=== PATIENT | male | born 1960 | race Caucasian/White ===

== ENCOUNTER 2016-10-22 07:56 | Day surgery (SDC) | payer MEDICARE ==
[~2016-10-22 07:56] MED LIST: RINGERS SOLUTION,LACTATED 1,000 ML IV PRN
--- OUTSIDE RECORDS SUMMARY | 2016-10-22 08:00 | XMS REPORT | Continuity of Care Document ---
:1960 Author Organization [facility] ([facility]) Address [address] [place] [address] Phone [phone] Care Team Providers Name Role Phone Amado Marc Primary Care Provider [phone] Source Comments This disclosure is being made pursuant to the Care Everywhere program, applicable federal and state laws, and may not contain all informaitonavailable regarding this patient.[facility] ([facility]) Active Allergies and Adverse Reactions No Known Allergies Current Medications Prescription Sig. Disp. Refills Start Date End Date Status cholecalciferol Take 1 Tab by 30 Tab 0 04/25/2012 Active (VITAMIN D3) 400 unit mouth daily. tablet Indications: OSTEOPOROSIS docusate 100 mg Take 1 Cap by 60 Cap 0 04/25/2012 Active capsule mouth 2 times daily. Indications: CONSTIPATION multivitamin with Take 1 Tab by 30 Tab 0 04/25/2012 Active minerals tablet mouth daily. Indications: MINERAL DEFICIENCY PREVENTION polyethylene glycol Take 17 g by mouth 30 Packet 0 04/25/2012 Active 3350 17 gram packet daily. Indications: CONSTIPATION traZODone 50 mg tablet Take 1 Tab by 30 Tab 0 04/25/2012 Active mouth at bedtime as needed for Sleep. Indications: INSOMNIA citalopram (CELEXA) 20 Take 1 Tab by 30 Tab 1 06/29/2013 Active mg tablet mouth daily. Indications: MAJOR DEPRESSIVE DISORDER tamsulosin 0.4 mg ER Take 0.8 mg by Active capsule mouth at bedtime. OXcarbazepine 600 mg Take 1 Tab by 180 Tab 11 10/16/2014 Active tablet mouth 2 times daily. Indications: COMPLEX-PARTIAL EPILEPSY OXcarbazepine 150 mg Take 1 Tab by 60 Tab 11 10/16/2014 Active tablet mouth 2 times daily. Take along with 600 mg tab BID Indications: COMPLEX-PARTIAL EPILEPSY levETIRAcetam 750 mg Take 2 Tabs by 120 Tab 11 10/16/2014 Active tablet mouth 2 times daily. Indications: TONIC-CLONIC EPILEPSY TREATMENT ADJUNCT Active Problems Problem Noted Date Cognitive dysfunction with epilepsy 04/11/2014 Last Assessment & Plan: 04/11/2014 SInce status epilepticus. Please see neuropsychological assessment. Patient can not drive. 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 says he has days when he is down. He is on anti-depressant that is prescribed by PMD In [place] he goes for walks, watches sports with family. 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 Had a convulsion in the fall while in [place]. He may have missed one dose of keppra. Trileptal was increased at that time. He stopped using pill box but will get back to it He does wear his CPAP The will be moving permanently to [facility] which is near [facility]. Plan Advised re short half life and needs to be taken very reliably and not miss a dose They have a copy of their medical records and I will look for a neurologist / epileptologist in their area. Continue keppra 1500 mg twice a day; Trileptal 750 mg twice a day renewed. Status epilepticus 04/09/2012 Last Assessment & Plan: 08/14/2013 Status epilepticus 04/2012. He is at risk for recurrence. Resolved Problems Problem Noted Date Resolved Date Hypokalemia 04/13/2012 04/14/2012 Urinary retention 04/13/2012 04/16/2012 Immunizations Name Dates Previously Given Next Due Influenza, PF 04/16/2012 Influenza, unspecified 04/03/2014 Social History Tobacco Use Types Packs/Day Years Used Date Never Smoker Smokeless Tobacco: Never Used Tobacco Cessation:Counseling Given: Yes Comments: Alcohol Use Drinks/Week oz/Week Comments No Former alcohol abuse, quit many years ago Last Filed Vital Signs Vital Sign Reading Time Taken Blood Pressure 117/67 10/16/2014 3:28 PM CDT Pulse 66 10/16/2014 3:28 PM CDT Temperature 36.8 C (98.2 F) 04/25/2012 8:00 AM CDT Respiratory Rate 18 04/25/2012 8:00 AM CDT Height 1.727 m (5' 7.99") 10/16/2014 3:28 PM CDT Weight 117.9 kg (259 lb 14.8 oz) 10/16/2014 3:28 PM CDT Body Mass Index 39.53 10/16/2014 3:28 PM CDT Oxygen Saturation 94% 04/25/2012 8:00 AM CDT Plan of Care Health Maintenance Due Date Last Done Comments HCV Screening 1960 Hepatitis B Vaccine (1 of 3 - Primary 1960 Series) Tdap Vaccine 12/15/1971 Lipid Disorder Screening 1978 MMR Vaccine 1978 Td Vaccine 1978 Colonoscopy 2010 Prostate Cancer Screening 2010 Influenza Vaccine: Seasonal (#1) 02/02/2016 04/03/2014, 04/16/2012 Results from Last 3 Months Not on file
[2016-10-22] MEDS ORDERED: RINGERS SOLUTION,LACTATED 1,000 ML IV ONE (08:35)
--- NOTE | 2016-10-22 09:54 | OR ---
Operative Report - Dictated Report Narrative: Date: 10/22/2016 Staff surgeon: Woody Goldsmith MD Proctoring surgeon: Ritu Garrett MD Procedure: Colonoscopy Preoperative diagnosis: Screening postoperative diagnosis: One diverticulum at the hepatic flexure Description of procedure: After informed consent was obtained and appropriate premedication had been given the patient was placed in the left lateral decubitus position and a flexible fiberoptic video colonoscope was introduced and advanced without difficulty under direct vision to the cecum. The usual landmarks were identified. Preparation was excellent and excellent views were obtained. The findings were of a normal cecum. The ascending colon was normal. One small diverticulum was seen at the hepatic flexure. The transverse colon was normal. Splenic flexure and descending descending colon appeared normal. The sigmoid colon was normal. The rectum was normal. The mucosal collar, vasculature, and texture were normal throughout. No suspicious mass lesions were seen. The patient tolerated the procedure well without any apparent complications and was discharged from the endoscopy suite in stable condition.
[2016-10-22 10:45] VITALS: BP 148/80
== END 2016-10-22 07:57 | disposition home or self-care (01) ==
LOC: AMB 07:56
PROVIDERS: ATTEND Specialist
PROC: 0DJD8ZZ Inspection of Lower Intestinal Tract, Via Natural or Artificial Opening Endoscopic (ICD-10-PCS; principal; 2016-10-22 08:45)
DX: Z12.11 Encounter for screening for malignant neoplasm of colon (principal); K57.30 Diverticulosis of large intestine without perforation or abscess without bleeding; G40.909 Epilepsy, unspecified, not intractable, without status epilepticus; G47.33 Obstructive sleep apnea (adult) (pediatric); Z87.891 Personal history of nicotine dependence; Z68.38 Body mass index [BMI] 38.0-38.9, adult